=== PATIENT | male | born 1950 | race Caucasian/White ===

== ENCOUNTER 2020-06-27 09:56 | Emergency (ER) | payer OTHER ==
[~2020-06-27] VITALS: Ht 182.9 cm; Wt 95.3 kg
[2020-06-27] MEDS ORDERED: ZESTRIL5 MG PO (10:09)
[2020-06-27] MEDS ORDERED: ORPHENADRINE C100 MG PO (11:32)
[2020-06-27] MEDS ORDERED: KETO10TA2 PO (11:32)
[2020-06-27] MEDS ORDERED: CELEBREX100 MG (11:32)
== END 2020-06-27 11:35 | disposition home or self-care (01) ==
LOC: ER 09:56
DX: S73.191A Other sprain of right hip, initial encounter (principal); X50.0XXA Overexertion from strenuous movement or load, initial encounter; Y93.B2 Activity, push-ups, pull-ups, sit-ups; Y92.89 Other specified places as the place of occurrence of the external cause; Y99.8 Other external cause status